=== PATIENT | female | born 1965 | race Two or more races ===

== ENCOUNTER 2025-07-11 17:10 | Emergency (ER) | payer MEDICAID, SELFPAY ==
--- NOTE | 2025-07-11 17:27 | XR_ITS ---
EXAMINATION: PA chest single view TECHNIQUE: Upright PA chest single view Date and time: July 11, 2025, 1809 hours INDICATIONS: Cough and chest pain beginning 3 days ago. FINDINGS: Normal heart size Lungs are clear. Osseous structures are intact IMPRESSION: No active disease
--- NOTE | 2025-07-11 17:27 | PD.EDRME ---
Rapid Medical Screening Exam RME Arrival date/time: 07/11/25 17:10 59-year-old female with no known medical history presents to the emergency room with a chief complaint of cough, phlegm, fever x 2 days I have greeted and performed a focused initial assessment of this patient. A comprehensive ED assessment and evaluation of the patient, analysis of all test results, and completion of the medical decision making process will be conducted by additional ED providers. Chief Complaint: Flu Like Symptoms Vital signs reviewed by provider: Yes Exam: Clear bilateral lung sounds Strong and regular rhythm Clinical Impression: URI versus community-acquired pneumonia
--- NOTE | 2025-07-11 19:46 | PD.EDADULT ---
ED General RME/HPI General Chief complaint: Flu Like Symptoms Stated complaint: COUGH, CHEST PAIN, NASAL DRIP, SOB Arrival date/time: 07/11/25 17:10 CC: Cough headache chest pain after coughing HPI ongoing for 2 days, is also ill with similar events. Patient denies any fever at home no OTC medicines taken. Patient denies difficulty breathing. RME / HPI RME / HPI narrative: 07/11/25 17:10 59-year-old female with no known medical history presents to the emergency room with a chief complaint of cough, phlegm, fever x 2 days I have greeted and performed a focused initial assessment of this patient. A comprehensive ED assessment and evaluation of the patient, analysis of all test results, and completion of the medical decision making process will be conducted by additional ED providers. Exam: Clear bilateral lung sounds Strong and regular rhythm Impression: URI versus community-acquired pneumonia Related Data Previous Rx's ?Medication ?Instructions ?Recorded benzonatate 100 mg capsule 100 mg PO BID PRN cough #20 caps 07/11/25 ibuprofen 600 mg tablet 600 mg PO Q8H PRN pain #14 tabs 07/11/25 prednisone 20 mg tablet See Taper PO BID 3 days #6 tabs 07/11/25 Allergies Allergy/AdvReac Type Severity Reaction Status Date / Time No Known Allergies Allergy Verified 07/11/25 17:15 Review of Systems Review of Systems Narrative Review of Systems: GEN: No fever, no chills, no weight loss EYES: No discharge, no visual changes, no pain HEENT: No ear pain, no congestion, no sore throat PULM: No shortness of breath, + cough, no congestion CV: No chest pain, no dyspnea on exertion, no palpitations GI: No nausea, no vomiting, no diarrhea, no pain, no constipation : No frequency, no urgency, no dysuria MUSC/SKEL: No joint pain, no back pain SKIN: No rash PSYCH: No hallucinations, no depression HEME/LYMPH: No easy bleeding or bruising tendencies NEURO: No weakness, no headache Past Medical History Past Medical History NEUROLOGIC: Negative Neurological Disorders CARDIAC: Negative Cardiac Disorders or Congestive Heart Failure RESPIRATORY: Negative Chronic Obstructive Pulmonary Disease (COPD) GASTROINTESTINAL: Negative Gastrointestinal Disorders GENITOURINARY: Negative Genitourinary Disorders or Renal Disease MUSCULOSKELETAL: Negative Musculoskeletal Disorders ENDOCRINE: Negative Endocrine Disorders, Diabetes Mellitus Type 1 or Diabetes Mellitus Type 2 HEMATOLOGIC: Negative Blood Disorders OTHER HISTORY: Negative Autoimmune Disease, Anesthesia Reactions, MRSA or Cancer Surgical History SURGICAL: Positive Section; Negative Cardiac Surgery, Endocrine Surgery, Ear Surgery, Abdominal Surgery, Nephrectomy, Joint Replacement or Neurologic Surgery Social History SMOKING STATUS: Never smoker ED Exam Narrative Physical exam: [General: In mild discomfort but not in any acute distress Head normocephalic HEENT: Within acceptable limits Neck is supple nontender Chest equal chest rise nontender to palpation Respiratory: Clear to auscultation no wheezes crackles or rubs CV: Rate rhythm is regular no murmurs rubs or clicks Abdomen is soft nontender no masses positive bowel sounds all 4 quadrants Back: No CVA tenderness no spinous process tenderness from cervical spine thoracic and lumbar spine Skin: Intact no petechiae rash induration ulceration or crepitus Extremities: Moving all extremity against resistance cap refill less than 2 seconds neurosensory intact Neuro: Awake alert oriented x3 Glascow coma 15 no focal deficits] Course Quality Measures none Orders Category Date Time Status Bedside COVID-19 Antigen Test NOW Care 07/11/25 17:27 Active Bedside Influenza A&B Antigen Test NOW Care 07/11/25 17:27 Completed XR chest 1V portable Stat Exams 07/11/25 17:27 Completed Discharge Plan Plan Patient Disposition: HOME (Self Care) Patient condition on transfer: Stable Prescriptions/Referrals Prescriptions/Med Rec: New benzonatate 100 mg capsule 100 mg PO BID PRN (Reason: cough) Qty: 20 0RF prednisone 20 mg tablet See Taper PO BID 3 Days Qty: 6 0RF Taper: Prednisone Taper 20 mg DAILY for 2 Days and 0 Hour 10 mg DAILY for 2 Days and 0 Hour 5 mg DAILY for 7 Days and 0 Hour ibuprofen 600 mg tablet 600 mg PO Q8H PRN (Reason: pain) Qty: 14 0RF Referrals: Isaac Noel MD [Physician, Family Practice] - In 1 week No Primary/Family,Physician [Primary Care Provider] - In 1 week Problem List Clinical Impression: Upper respiratory infection, Cough Patient/Caregiver Discharge Instructions Other Activity Instructions:: Take the medications as prescribed for symptom relief follow-up with your primary care doctor. If there is worsening of symptoms return the emergency room for repeat evaluation. Education Materials: ED URI, Viral, No Abx (Adult) Print Language: Macedonian Stand Alone Forms: [employer] Info., Patient Portal Info Letter, Work/School Release PA/[employer] Supervising Physician PA/[employer]IST Supervising Physician: Sergio Lan ENP MDM Clinical Information Provided by: patient Medical Records reviewed [facility] Meds/Rx considered, not ordered None Labs/Rad/Tests considered, not ordered None Chronic Illness/Social Conditions which may negatively complicate care or outcome(s)-explain: None or not applicable EKG EKG not done Labs Labs: interpreted by me Lab(s) Interpretation(s): COVID influenza are negative Imaging Imaging interpretation: interpreted by me Imaging Interpretation(s): Chest x-ray is negative Diagnosis Differential Diagnosis ED Complaint MDM: Pneumonia COVID influenza viral syndrome
[2025-07-11] MEDS: KETOROLAC INJ 30 MG/ML VIAL 15 MG IM (20:00)
== END 2025-07-11 20:02 | disposition home or self-care (01) ==
PROVIDERS: Emergency Provider Nurse Practitioner Family
DX: J06.9 Acute upper respiratory infection, unspecified (principal); R07.9 Chest pain, unspecified
CPT/HCPCS: 71045; 87502; 87635; 96372; 99283; J1885